=== PATIENT | female | born 1945 | race Caucasian/White ===

== ENCOUNTER 2017-03-26 08:55 | Inpatient (IN) | payer MEDICARE ==
[~2017-03-26] VITALS: Ht 167.6 cm; Wt 76.2 kg
[2017-03-26 08:55] VITALS: BP 93/62
[~2017-03-26 08:55] MED LIST: ALDACTONE25 MG PO; ALPRAZOLAM0.5 M2 PO; AMIODARONE200 MG PO; ASPIRIN ADULT L81 MG PO; ASPIRIN EC81 MG PO; CARVEDILOL6.25 MG PO; CENTURY VIT PO; CIPROFLOXACIN500 M1 PO; COUMADIN2.5 MG PO; COUMADIN5 MG PO; FUROSEMIDE20 MG PO; INSULIN; LASIX 20 MG20 MG/TAB PO; LASIX 40 MG TAB40 MG PO; LEVEMIR FL100 UNIT/M SC; LEVEMIR1000 UNITS SC; LISINOPRIL2.5 MG PO; LOPRESSOR25 MG PO; NOVOLOG100 IU/1 M SC; NYSTATIN100000 M4 TOP; OMEPRAZOLE10 MG PO; PHENERGAN25 MG/TAB PO; PRAVACHOL40 MG PO; PRAVASTATIN SOD20 MG PO; PRAVASTATIN20 MG PO; SPIRONOLACTONE25 MG PO; VITAMIN D50000 UN1 PO; ZOFRAN ODT4 MG PO; ZOFRAN4 MG/TAB PO
[2017-03-26] MEDS ORDERED: ENTRESTO 24-261 TAB PO (11:41)
[2017-03-26] MEDS ORDERED: AMIODARONE200 MG PO (11:41)
[2017-03-26] MEDS ORDERED: ELIQUIS2.5 MG PO (11:42)
[2017-03-26] MEDS ORDERED: COREG3.125 MG PO (11:42)
[2017-03-26] MEDS ORDERED: TORSEMIDE5 MG PO (11:42)
[2017-03-26] MEDS ORDERED: TESSALON PER100 MG PO (11:43)
[2017-03-26] MEDS ORDERED: PRAVASTATIN SOD20 MG PO (11:43)
[2017-03-26 13:19] VITALS: BP 109/71
[2017-03-26 15:40] VITALS: BP 118/66
[2017-03-26 20:20] VITALS: BP 132/78
[2017-03-26 23:15] VITALS: BP 111/64
[2017-03-27 03:15] VITALS: BP 121/60
[2017-03-27 06:50] LABS: HEMATOCRIT 38.5 % (37.0-47.0); HEMOGLOBIN 12.8 g/dl (12.0-16.0); IMMATURE GRANULOCYTES 0.5 % (0.0-1.0); MEAN CELL VOLUME 97.2 fL CALC (80.0-100.0); MEAN CORPUSCULAR HGB 32.3 pG CALC (26.0-32.0); MEAN CORPUSCULAR HGB CONC 33.2 g/L CALC (32.0-36.0); NEUT# 5.31 thou/uL (2.00-7.15); RED BLOOD COUNT 3.96 mill/uL (4.20-5.60); RED CELL DISTRI WIDTH 14.1 % (11.5-15.5)
[2017-03-27 07:08] LABS: CALCIUM 7.3 mg/dL (8.4-10.2); CREATININE 1.9 mg/dL (0.5-1.0)
[2017-03-27 07:09] LABS: POTASSIUM 5.6 mmol/l (3.5-5.1)
[2017-03-27 08:13] VITALS: BP 103/55
[2017-03-27 08:24] LABS: INTERNATIONAL NORMALIZED RATIO 1.4 RATIO (0.7-1.3); PROTHROMBIN TIME 15.3 SECONDS (9.0-12.5)
[2017-03-27 14:31] VITALS: BP 92/41
[2017-03-27 15:28] VITALS: BP 85/51
[2017-03-27 19:18] VITALS: BP 96/61
[2017-03-27 23:32] VITALS: BP 90/54
[2017-03-28 03:53] VITALS: BP 96/57
[2017-03-28 06:10] LABS: HEMATOCRIT 37.8 % (37.0-47.0); HEMOGLOBIN 12.6 g/dl (12.0-16.0); IMMATURE GRANULOCYTES 0.6 % (0.0-1.0); MEAN CELL VOLUME 96.9 fL CALC (80.0-100.0); MEAN CORPUSCULAR HGB 32.3 pG CALC (26.0-32.0); MEAN CORPUSCULAR HGB CONC 33.3 g/L CALC (32.0-36.0); NEUT# 8.05 thou/uL (2.00-7.15); RED BLOOD COUNT 3.9 mill/uL (4.20-5.60); RED CELL DISTRI WIDTH 14.5 % (11.5-15.5)
[2017-03-28 06:27] LABS: CREATININE 1.9 mg/dL (0.5-1.0)
[2017-03-28 06:36] LABS: POTASSIUM 5.7 mmol/l (3.5-5.1)
[2017-03-28 07:41] VITALS: BP 109/65
[2017-03-28 12:55] VITALS: BP 111/60
[2017-03-28 16:20] VITALS: BP 112/63
[2017-03-28 20:10] VITALS: BP 105/59
[2017-03-29] VITALS (7 sets, daily range): BP systolic 96–175; BP diastolic 51–78
[2017-03-29 05:44] LABS: HEMATOCRIT 37.9 % (37.0-47.0); HEMOGLOBIN 12.4 g/dl (12.0-16.0); IMMATURE GRANULOCYTES 0.6 % (0.0-1.0); MEAN CELL VOLUME 97.2 fL CALC (80.0-100.0); MEAN CORPUSCULAR HGB 31.8 pG CALC (26.0-32.0); MEAN CORPUSCULAR HGB CONC 32.7 g/L CALC (32.0-36.0); NEUT# 10.86 thou/uL (2.00-7.15); RED BLOOD COUNT 3.9 mill/uL (4.20-5.60); RED CELL DISTRI WIDTH 14.7 % (11.5-15.5)
[2017-03-29 05:57] LABS: CALCIUM 7.3 mg/dL (8.4-10.2); CREATININE 1.7 mg/dL (0.5-1.0); POTASSIUM 4.8 mmol/l (3.5-5.1)
[2017-03-30 03:35] VITALS: BP 131/71
[2017-03-30 04:59] LABS: HEMATOCRIT 36.9 % (37.0-47.0); HEMOGLOBIN 12.1 g/dl (12.0-16.0); IMMATURE GRANULOCYTES 0.6 % (0.0-1.0); MEAN CELL VOLUME 97.6 fL CALC (80.0-100.0); MEAN CORPUSCULAR HGB CONC 32.8 g/L CALC (32.0-36.0); RED BLOOD COUNT 3.78 mill/uL (4.20-5.60); RED CELL DISTRI WIDTH 14.8 % (11.5-15.5)
[2017-03-30 05:15] LABS: CALCIUM 7.1 mg/dL (8.4-10.2); CREATININE 1.4 mg/dL (0.5-1.0); POTASSIUM 5.1 mmol/l (3.5-5.1)
[2017-03-30 09:37] VITALS: BP 110/51
[2017-03-30 12:44] VITALS: BP 115/55
[2017-03-30 17:07] VITALS: BP 116/60
[2017-03-30 19:30] VITALS: BP 124/71
[2017-03-30 23:35] VITALS: BP 108/61
[2017-03-31 04:43] VITALS: BP 108/58
[2017-03-31 07:11] LABS: HEMATOCRIT 35.5 % (37.0-47.0); HEMOGLOBIN 11.8 g/dl (12.0-16.0); IMMATURE GRANULOCYTES 0.8 % (0.0-1.0); MEAN CELL VOLUME 96.7 fL CALC (80.0-100.0); MEAN CORPUSCULAR HGB 32.2 pG CALC (26.0-32.0); MEAN CORPUSCULAR HGB CONC 33.2 g/L CALC (32.0-36.0); NEUT# 11.1 thou/uL (2.00-7.15); RED BLOOD COUNT 3.67 mill/uL (4.20-5.60); RED CELL DISTRI WIDTH 14.8 % (11.5-15.5)
[2017-03-31 07:15] VITALS: BP 102/62
[2017-03-31 07:26] LABS: CALCIUM 7.5 mg/dL (8.4-10.2); CREATININE 1.2 mg/dL (0.5-1.0); POTASSIUM 4.9 mmol/l (3.5-5.1)
[2017-03-31 11:13] VITALS: BP 110/50
[2017-03-31] MEDS ORDERED: PREDNISONE10 MG PO (15:07)
[2017-03-31] MEDS ORDERED: DOXYCYCL HYC100 MG PO (15:07)
[2017-03-31] MEDS ORDERED: LASIX 40 MG TAB40 MG PO (15:13)
[2017-03-31 15:32] VITALS: BP 111/50
== END 2017-03-31 16:56 | disposition home health service (06) | DRG 291 ==
LOC: ENPENDDIS → MS2 08:55
PROVIDERS: Internal Medicine; ADMIT Internal Medicine; ATTEND Internal Medicine
PROC: 0W993ZX Drainage of Right Pleural Cavity, Percutaneous Approach, Diagnostic (ICD-10-PCS; principal; 2017-03-27)
DX: I13.0 Hypertensive heart and chronic kidney disease with heart failure and stage 1 through stage 4 chronic kidney disease, or unspecified chronic kidney disease (principal); J18.9 Pneumonia, unspecified organism; J96.20 Acute and chronic respiratory failure, unspecified whether with hypoxia or hypercapnia; J90 Pleural effusion, not elsewhere classified; E11.22 Type 2 diabetes mellitus with diabetic chronic kidney disease; E87.5 Hyperkalemia; N18.4 Chronic kidney disease, stage 4 (severe); N17.9 Acute kidney failure, unspecified; K31.84 Gastroparesis; E11.43 Type 2 diabetes mellitus with diabetic autonomic (poly)neuropathy; Z99.81 Dependence on supplemental oxygen; I50.23 Acute on chronic systolic (congestive) heart failure; I48.0 Paroxysmal atrial fibrillation; I25.10 Atherosclerotic heart disease of native coronary artery without angina pectoris; E78.5 Hyperlipidemia, unspecified; M19.90 Unspecified osteoarthritis, unspecified site; R07.9 Chest pain, unspecified; I25.5 Ischemic cardiomyopathy; E55.9 Vitamin D deficiency, unspecified; D63.1 Anemia in chronic kidney disease; I25.2 Old myocardial infarction; K59.00 Constipation, unspecified; Z79.4 Long term (current) use of insulin; Z88.0 Allergy status to penicillin; Z79.01 Long term (current) use of anticoagulants; Z95.810 Presence of automatic (implantable) cardiac defibrillator; Z95.5 Presence of coronary angioplasty implant and graft

== ENCOUNTER 2018-06-21 10:26 | Inpatient (IN) | payer MEDICARE, MEDICAID ==
[2018-06-21] VITALS (8 sets, daily range): BP systolic 107–155; BP diastolic 64–78
[~2018-06-21] VITALS: Ht 170.2 cm; Wt 73.5 kg
[~2018-06-21 10:26] MED LIST changes: +COREG3.125 MG PO; +DOXYCYCL HYC100 MG PO; +ELIQUIS2.5 MG PO; +ENTRESTO 24-261 TAB PO; +PREDNISONE10 MG PO; +TESSALON PER100 MG PO; +TORSEMIDE5 MG PO
[2018-06-21] MEDS ORDERED: LOSARTAN POT25 MG PO (10:56)
[2018-06-21 10:58] LABS: HEMATOCRIT 37.2 % (37.0-47.0); IMMATURE GRANULOCYTES 0.3 % (0.0-5.0); MEAN CELL VOLUME 97.1 fL CALC (80.0-100.0); MEAN CORPUSCULAR HGB 33.2 pG CALC (26.0-32.0); MEAN CORPUSCULAR HGB CONC 34.1 g/L CALC (32.0-36.0); NEUT# 5.26 thou/uL (2.00-7.15); RED BLOOD COUNT 3.83 mill/uL (4.20-5.60); RED CELL DISTRI WIDTH 12.6 % (11.5-15.5)
[2018-06-21] MEDS ORDERED: LASIX 40 MG TAB40 MG PO (10:58)
[2018-06-21] MEDS ORDERED: WARFARIN3 MG PO (10:59)
[2018-06-21 11:02] LABS: HEMOGLOBIN 12.7 g/dl (12.0-16.0)
[2018-06-21 11:07] LABS: CREATININE 1.4 mg/dL (0.5-1.0)
[2018-06-21 11:23] LABS: INTERNATIONAL NORMALIZED RATIO 1.5 RATIO (0.7-1.3); PROTHROMBIN TIME 17.4 SECONDS (9.0-12.5)
[2018-06-21 14:35] LABS: URINE BILIRUBIN - DIPSTICK NEGATIVE (NEGATIVE); URINE BLOOD DIPSTICK NEGATIVE (NEGATIVE); URINE COLOR YELLOW; URINE GLUCOSE - DIPSTICK >=1000 mg/dL (NEGATIVE); URINE KETONE NEGATIVE (NEGATIVE); URINE LEUK ESTERASE NEGATIVE (NEGATIVE); URINE NITRITE - DIPSTICK NEGATIVE (Negative); URINE PH 5.5 (4.5-8.0); URINE PROTEIN - DIPSTICK NEGATIVE (NEG-TRACE); URINE SPECIFIC GRAVITY <=1.005; URINE UROBILINOGEN - DIPSTICK 0.2 E.U./dL (0.2)
[2018-06-21 14:49] LABS: URINE CLARITY CLEAR
== END 2018-06-21 17:40 | disposition short-term general hospital (02) | DRG 309 ==
LOC: ED 10:26 → ED-I 11:50 → ED 12:00 → ICU 12:01
PROVIDERS: Family Medicine; ADMIT Internal Medicine Nephrology; ATTEND Internal Medicine Nephrology
DX: I47.2 Ventricular tachycardia (principal); I13.0 Hypertensive heart and chronic kidney disease with heart failure and stage 1 through stage 4 chronic kidney disease, or unspecified chronic kidney disease; I25.10 Atherosclerotic heart disease of native coronary artery without angina pectoris; I48.2 Chronic atrial fibrillation; E78.5 Hyperlipidemia, unspecified; E11.22 Type 2 diabetes mellitus with diabetic chronic kidney disease; N18.3 Chronic kidney disease, stage 3 (moderate); I50.9 Heart failure, unspecified; M19.90 Unspecified osteoarthritis, unspecified site; I25.2 Old myocardial infarction; Z95.810 Presence of automatic (implantable) cardiac defibrillator; Z95.5 Presence of coronary angioplasty implant and graft; Z79.4 Long term (current) use of insulin
CPT/HCPCS: J0282

== ENCOUNTER 2019-02-24 18:44 | Emergency (ER) | payer MEDICARE ==
[~2019-02-24] VITALS: Ht 170.2 cm; Wt 100.0 kg
[~2019-02-24 18:44] MED LIST changes: +LOSARTAN POT25 MG PO; +WARFARIN3 MG PO
[2019-02-24 19:21] LABS: HEMATOCRIT 35.7 % (37.0-47.0); HEMOGLOBIN 11.5 g/dl (12.0-16.0); IMMATURE GRANULOCYTES 0.1 % (0.0-5.0); MEAN CELL VOLUME 95.7 fL CALC (80.0-100.0); MEAN CORPUSCULAR HGB 30.8 pG CALC (26.0-32.0); MEAN CORPUSCULAR HGB CONC 32.2 g/L CALC (32.0-36.0); NEUT# 5.1 thou/uL (2.00-7.15); RED BLOOD COUNT 3.73 mill/uL (4.20-5.60); RED CELL DISTRI WIDTH 13.9 % (11.5-15.5)
[2019-02-24 19:22] VITALS: BP 120/81
[2019-02-24 19:34] LABS: CREATININE 1.5 mg/dL (0.5-1.0); POTASSIUM 3.8 mmol/l (3.5-5.1)
== END 2019-02-24 19:40 | disposition short-term general hospital (02) ==
LOC: ED 18:44
PROVIDERS: Family Medicine
DX: R07.9 Chest pain, unspecified (principal); I48.91 Unspecified atrial fibrillation; I25.10 Atherosclerotic heart disease of native coronary artery without angina pectoris; E11.9 Type 2 diabetes mellitus without complications; I10 Essential (primary) hypertension; I25.2 Old myocardial infarction; Z95.0 Presence of cardiac pacemaker; Z88.6 Allergy status to analgesic agent; Z95.5 Presence of coronary angioplasty implant and graft
CPT/HCPCS: J1644

== ENCOUNTER 2019-06-18 16:40 | Inpatient (IN) | payer MEDICARE ==
[~2019-06-18] VITALS: Ht 170.2 cm; Wt 85.5 kg
[2019-06-18] VITALS (11 sets, daily range): BP systolic 78–102; BP diastolic 44–69
[~2019-06-18 16:40] MED LIST changes: -COREG3.125 MG PO; +COREG6.25 MG PO
--- NOTE | 2019-06-18 16:40 | NUR ---
PT DIRECTLY TO ROOM VIA WHEELCHAIR.
[2019-06-18 17:19] LABS: HEMATOCRIT 36.4 % (37.0-47.0); HEMOGLOBIN 11.4 g/dl (12.0-16.0); IMMATURE GRANULOCYTES 0.4 % (0.0-5.0); MEAN CELL VOLUME 93.3 fL CALC (80.0-100.0); MEAN CORPUSCULAR HGB 29.2 pG CALC (26.0-32.0); MEAN CORPUSCULAR HGB CONC 31.3 g/L CALC (32.0-36.0); NEUT# 3.88 thou/uL (2.00-7.15); RED BLOOD COUNT 3.9 mill/uL (4.20-5.60); RED CELL DISTRI WIDTH 14.6 % (11.5-15.5)
[2019-06-18 17:35] LABS: PROTHROMBIN TIME 21.4 SECONDS (9.0-12.5)
--- NOTE | 2019-06-18 17:35 | NUR ---
ADMINISTERED ADDITIONAL 10MG CARDIZEM IV SLOW PUSH ORDERED PER MD. HR 112. PT DENIES SOB AND STATES PAIN IN CHEST IS DOWN TO 5/10.
--- NOTE | 2019-06-18 17:36 | NUR ---
INITIATED CARDIZEM GTT AT 5MG/HR PER MD. PT TOLERATING WELL HR 100. SKIN RUMA, RAUL IN LAW AT BEDSIDE
[2019-06-18 17:37] LABS: CREATININE 1.7 mg/dL (0.5-1.0); INTERNATIONAL NORMALIZED RATIO 2.1 RATIO (0.7-1.3)
[2019-06-18 17:43] LABS: POTASSIUM 4.7 mmol/l (3.5-5.1)
[2019-06-18] MEDS ORDERED: VITAMIN D2000 UNI1 PO (18:09)
[2019-06-18] MEDS ORDERED: WARFARIN3 MG PO (18:11)
[2019-06-18] MEDS ORDERED: WARFARIN6 MG PO (18:12)
[2019-06-18] MEDS ORDERED: LORATADINE10 M1 PO (18:15)
[2019-06-18] MEDS ORDERED: SOTALOL HCL80 MG PO (18:15)
--- NOTE | 2019-06-18 18:15 | NUR ---
PATIENT ARRIVES WITH ER NURSE VIA STRETCHER WITH TELEMETRY AND CARDIZEM AND NS FLUIDS. WAS ABLE TO WALK TO BED WITH MINIMAL ASSIST. PATIENT USED BSC, URINE CLEAR AND YELLOW. PATIENT ALERT AND ORIENTED X4. WAS PLACED ON NC 2L/MIN, SHE REPORTS SHE USES NC 2L/MIN AT HOME. SATS 100%. COMPLAINS OF CHEST PRESSURE, RATES 3/10 PAIN SCALE. NO OTHER COMPLAINTS. ADMISSION COMPLETED. EDUCATED ON POC FOR TONIGHT. SELF REPOSITIONS. REQUESTS FOR FOOD, EDUCATED ON BLOOD SUGAR CHECKS AND INSULIN. RAC 20 G IV INTACT AND CARDIZEM DRIP AND NS INFUSING. CARDIZEM DRIP AT 5MG/HR. AFIB ON TELEMTERY, HR IS BETWEEN 80'S TO 100'S. EXERTIONAL SOB NOTED. CALL LIGHT WITHIN REACH. WILL CONTINUE TO MONITOR.
[2019-06-18] MEDS ORDERED: SPIRONOLACT25 MG PO (18:17)
[2019-06-18] MEDS ORDERED: PROTONIX40 M2 PO (18:20)
[2019-06-18] MEDS ORDERED: POT CHLORIDE10 ME1 PO (18:20)
[2019-06-18] MEDS ORDERED: NOVOLIN N100 UNIT/1 SC ×3 (18:24→18:25)
--- NOTE | 2019-06-18 18:40 | NUR ---
PT RESTING SUPINE IN NO DISTRESS WITH HOB ELEVATED. HR 86 AFIB NOTED ON MONITOR. NO COMPLAINTS.
--- NOTE | 2019-06-18 19:01 | NUR ---
CALLED REPORT TO ICU
--- NOTE | 2019-06-18 19:12 | NUR ---
TRANSPORTED TO ICU VIA STRETCHER IN STABLE CONDITION ON CONTINUOUS CARDAIC MONITOR.
--- NOTE | 2019-06-18 20:08 | NUR ---
CALLED AND SPOKE TO DR CONNELL TO REPORT PATIENT'S BS TOMIGHT, 350MG/DL. NEW ORDERS RECEIVED.
--- NOTE | 2019-06-18 22:25 | NUR ---
CALLED AND SPOKE TO DR CONNELL REGARDING PATIENT HAS HAD V-TACH X3, EACH 8 -9 BEATS OF V-TACH WITHIN ABOUT 15 MINUTES. ASYMPTOMATIC. NEW ORDERS RECEIVED.
[2019-06-19] VITALS (24 sets, daily range): BP systolic 78–103; BP diastolic 50–75
--- NOTE | 2019-06-19 | NUR ---
patient was assited to bsc. becomes sob with exertion. on 2l/min nc. sits at side of bed per request.
--- NOTE | 2019-06-19 00:50 | NUR ---
CALLED AND SPOKE TO DR CONNELL REGARDING PATIENT'S BLOOD PRESSURE. UPDATED HIM ON PATIENT'S CURRENT STATUS, NEW ORDERS RECEIVED.
--- NOTE | 2019-06-19 02:10 | NUR ---
patient sitting on side of bed, states, "legs feel restless." reports she sometimes sits on side of the bed at night at home. on 2l/min nc, no respiratory distress noted, sats 100%. afib on tele. hr now 85-103 bpm. with occassional frequent pvc's. call light within reach.
--- NOTE | 2019-06-19 04:52 | NUR ---
patient was assisted to bedside chair. reports the bed hurts her back. on 2l/min nc, sob with exertion noted. sats 100%. afib on tele with pvc's. call light within reach. will continue to monitor.
--- NOTE | 2019-06-19 05:55 | NUR ---
patient remains sitting on bs chair. no complaints. on 2l/min nc. no sob noted. afib, hr 80's to 100. call light within reach.
--- NOTE | 2019-06-19 07:35 | NUR ---
PT SITTING UP ON EDGE OF BED FOR AM MEAL, AM ASSESSMENT COMPLETED, SEE INTERVENTION, NO COMPLAINTS OF PAIN, SKIN WARM AND DRY PT REMAINS ASYMPTOMATICALLY HYPOTENSIVE WITH MAP MAINTAINED >65, TELE CONTINUES READING AFIB RATE 100-110 WITH OCCASIONAL RUNS OF V TACH, (PER REPORT MD ALREADY AWARE) LUNGS CLEAR NO SOB PT ADMITS TO HAVING AN INTERMITTENLY PRODUCTIVE COUGH, CUP PROVIDED FOR SPECIMEN COLLECTION, COMFORT MEASURES PROVIDED, PT ABLE TO REPOSITION SELF FOR COMFORT.
--- NOTE | 2019-06-19 08:45 | NUR ---
PT OOB TO BSC WITH STAND BY ASSIST, TOLERATED ACTIVITY WELL
--- NOTE | 2019-06-19 09:25 | NUR ---
PT IN V TACH RATE 130'S BP REMAINS UNCHANGED, PT DENIES SYMPTOMS, PT DOES HAVE A PACER/AICD, NO ACTION FROM AICD NOTED. WILL NOTIFY AND OBTAIN EKG
[2019-06-19] MEDS ORDERED: PROLIA60 MG/ML SC (09:27)
--- NOTE | 2019-06-19 09:27 | NUR ---
OF SUSTAINED LOW RATE V TACH (RATE 130-135) PT REMAINS ASYMPTOMATIC AND BP REMAINS STABLE (MAP>65) TELEMETRY AND EKG SENT TO OFFICE
[2019-06-19] MEDS ORDERED: TESSALON PER100 MG PO (09:37)
[2019-06-19] MEDS ORDERED: FLONASE AL50 MCG/ACT (09:43)
[2019-06-19] MEDS ORDERED: NOVOLIN R100 UNIT/M SC ×3 (09:46→09:49)
--- NOTE | 2019-06-19 09:55 | NUR ---
V TACH CONVERTED BACK TO A FIB RATE 110'S, PT DENIES SYMRTOMS, CONTINUES WITH NO ACTION NOTED FROM AICD.
--- NOTE | 2019-06-19 10:32 | NUR ---
PT OOB TO BSC, CONTINUES TO HAVE RUNS OF LOW RATE V TACH (130'S), BP REMAINS STABLE MAP > 65, WILL CONTINUE TO MONITOR.
--- NOTE | 2019-06-19 11:37 | NUR ---
PER CHRISSIE SMITH SHE IWLL BE IN SOON FOR CONSULTATION. SHE HAS READ AM NURSES NOTES AND AWARE OF AM EVENTS
--- NOTE | 2019-06-19 12:28 | NUR ---
Richy MORENO APRN AT BEDSIDE FOR ALTAJAR CONSULT.
--- NOTE | 2019-06-19 13:00 | NUR ---
PT ASSISTED UP TO RECLINER WITH MIN ASSIST, CALL JACKSON WITHIN REACH
--- NOTE | 2019-06-19 14:13 | NUR ---
PT STARTED ON AMIODARONE ORDERED, PT EDUCATED REGARDING REASON FOR ADMINISTRATION, EXPECTATIONS AND POTENTIAL SIDE EFFECTS, VERBALIZES UNDERSTANDING, ALSO MEDICATED WITH TYLENOL ORDERED FOR COMPLAINTS OF BACK ACHING, CALL JACKSON WITHIN REACH AND REMAINS SITTING UP IN RECLINER.
--- NOTE | 2019-06-19 14:43 | NUR ---
pt back to bed with same assist, repositioned for comfort and call gonzalez within reach
--- NOTE | 2019-06-19 15:21 | NUR ---
PT REQUESTING EMSIS BAG, COMPLAINS OF NAUSEA, WILL NOTIFY
--- NOTE | 2019-06-19 15:42 | NUR ---
AJAY LEWIS OF NAUSEA AND NEW ORDERS REC'D
--- NOTE | 2019-06-19 16:01 | NUR ---
MEDICTAED FOR COMPLAINTS OF NAUSEA
--- NOTE | 2019-06-19 16:14 | NUR ---
PT STATES FEELING A LITTLE BIT BETTER BUT NOT MUCH. COMFORT MEASURES PROVIDED
--- NOTE | 2019-06-19 16:36 | NUR ---
PT OOB TO RECLINER AGAIN AT THIS TIME, COMPLAINS OF BEING "WINDED' WITH EXERTION BUT RECOVERS QUICKLY AT REST. CALL JACKSON WITHIN REACH
--- NOTE | 2019-06-19 17:21 | NUR ---
ASSISTED BACK TO BED COMPLAINING OF MILD DIZZINESS, TOLERATED TRASNFER WELL, CALL JACKSON WITHIN REACH, BP REMAINS HYPOTENSIVE BUT MAP MAINTAINED >65, SET UP ASSIST PROVIDED FOR PM MEAL, CALL JACKSON WITHIN REACH.
--- NOTE | 2019-06-19 18:07 | NUR ---
PT REMAINS RESTING IN BED, OFFERS NO NEW COMPLAINTS, CALL JACSKON WITHIN REACH
--- NOTE | 2019-06-19 19:00 | NUR ---
PATIENT WAS ASSISTED TO BSC TO VOID. C/O OF "CELE IN THE NECK," OFFERED HER A HOT PACK, SHE REPORTS FEELS BETTER WITH HOT PACK. ASSISTED BACK TO BED SAFELY. NO OTHER COMPLAINTS. DENIES NAUSEA. CALL LIGHT WITHIN REACH.
--- NOTE | 2019-06-19 19:25 | NUR ---
PATIENT ALERT AND ORIENTED X4. ON 2 L/MIN NC, NO SOB NOTED. HEAD TO TOE NURSING ASSESSMENT PERFORMED. L-H 22G IV INTACT, SALINE LOCKED. SELF REPOSITIONS. EDUCATED ON POC FOR TONIGHT, UNDERSTANDS AND AGREES. DENIES NAUSEA, DENIES PAIN. AFIB ON TELEMETRY, HR BETWEEN 90'S-110 BPM. CALL LIGHT WITHIN REACH WILL CONTINUE TO MONITOR.
--- NOTE | 2019-06-19 20:10 | NUR ---
DAUGHTER CALLED, DID NOT HAVE CODE. I ASKED FOR CONSENT FROM PATIENT IF DAUGHTER ALLOWED TO HAVE CODE AND GIVE INFORMATION, PATIENT CONSENTS AND UPDATE GIVEN TO DAUGHTER, CODE GIVEN WELL.
--- NOTE | 2019-06-19 20:12 | NUR ---
PHONE TRANSFERRED TO PATIENT TO SPEAK TO DAUGHTER AND .
--- NOTE | 2019-06-19 21:14 | NUR ---
AYAKA MCCORD IN ROOM TO ASSIST WITH BED BATH. PATIENT ALSO HAD NIGHTTIME SNACK.
--- NOTE | 2019-06-19 22:00 | NUR ---
patient laying with hob 30 degrees. on 2 l/min nc. no complaints of pain. rests with eyes closed. afib on telemetry with occassional pvc's, hr between 90's to 114 bpm. call light within reach.
[2019-06-20] VITALS (21 sets, daily range): BP systolic 75–113; BP diastolic 46–72
--- NOTE | 2019-06-20 00:05 | NUR ---
patient resting with eyes closed. turned tv off. she has an occassional cough and productive. afib on telemetry, hr low 100's. bp is hypotensive 80's-90's systolic. at times bp reads 78 systolic, bp cuff is readjusted and bp taken again. call light within reach. will continue to monitor.
--- NOTE | 2019-06-20 00:24 | NUR ---
patient sitting up on side of the bed, complains of nausea, does vomit scant amount, nausea medication provided. reports last bm was yesterday on the bsc, bs are hyoactive at this moment. will continue to monitor.
--- NOTE | 2019-06-20 01:54 | NUR ---
patient denies nausea at this moment, requests tylenol for chronic lower back pain, tylenol provided. beomes sob with exertion.
--- NOTE | 2019-06-20 02:00 | NUR ---
bs was checked as well, results 156 mg/dl. patient reports when her bs is l50 mg/dl it will "drop very fast." apple juice was provided per request. patient denies nausea. call light within reach. bp 89/59. sats 100% on 2l/min nc. afib on telemetry, hr between 90's to low 100's. will continue to monitor.
--- NOTE | 2019-06-20 03:30 | NUR ---
patient was assisted back to bed. sob noted with exertion. on 2l/min nc. call light within reach.
--- NOTE | 2019-06-20 05:00 | NUR ---
patient was assisted to and from bsc. sob with exertion noted. on 2l/min nc. call light within reach.
[2019-06-20 05:42] LABS: HEMATOCRIT 37.8 % (37.0-47.0); HEMOGLOBIN 11.7 g/dl (12.0-16.0); MEAN CORPUSCULAR HGB 29.1 pG CALC (26.0-32.0); RED BLOOD COUNT 4.02 mill/uL (4.20-5.60); RED CELL DISTRI WIDTH 14.7 % (11.5-15.5)
[2019-06-20 06:02] LABS: PROTHROMBIN TIME 30.2 SECONDS (9.0-12.5)
[2019-06-20 06:04] LABS: CREATININE 1.9 mg/dL (0.5-1.0)
--- NOTE | 2019-06-20 06:05 | NUR ---
patient with hob 30 degrees, watching tv. on 2l/min nc, sats 100%. no acute distress shown, afib on telemetry with pacing, and occassional pvc's, hr between 90's-100 bpm. call light within reach. will continue to monitor.
[2019-06-20 06:06] LABS: POTASSIUM 4.3 mmol/l (3.5-5.1)
--- NOTE | 2019-06-20 07:25 | NUR ---
PT SITTING UP IN BED FOR AM MEAL (AFTER REPOSITIONING SELF FOR COMFORT), AM ASSESSMENT COMPLETED, SEE INTERVENTION, NO COMPLAINTS OF PAIN, SKIN WARM AND DRY PT REMAINS ASYMPTOMATICALLY HYPOTENSIVE WITH MAP MAINTAINED >65, TELE CONTINUES READING AFIB RATE 100-110 WITH OCCASIONAL RUNS OF V TACH, IMPROVED SINCE AMIODARONE STARTED YESTERDAY, LUNGS CLEAR PT HAS EXERTIONAL DYSPNEA BUT RECOVERS WELL WITH REST, PT ADMITS TO HAVING AN INTERMITTENLY PRODUCTIVE COUGH, NOT WITNESSED BY THIS NURSE, COMFORT MEASURES PROVIDED, PT ABLE TO REPOSITION SELF FOR COMFORT.
--- NOTE | 2019-06-20 08:08 | NUR ---
SET UP ASSIST FOR AM MEAL PROVIDED, CALL JACKSON WITHIN REACH. DENIES NAUSEA A THIS TIME BUT STATES SHE CONTIINUES TO HAVE IT INTERMITTENLY.
--- NOTE | 2019-06-20 08:22 | NUR ---
AND Malachi NAVARRETE STEEL FINISHER INTO SEE PT ON AM ROUNDS.
--- NOTE | 2019-06-20 08:57 | NUR ---
Pharmacy consulted to dose warfarin. Pt's home dose is warfarin 3 mg po daily. Goal INR range 2-3 for Atrial fibrillation. 06/18/19 INR=2.1 Dose lowered on 06/19/19 to 2 mg po daily due to initiation of amiodarone. 06/20/19 INR=3 PLAN: HOLD TODAY'S DOSE AND RECHECK INR TOMORROW. WILL RESTART WARFARIN WHEN INR <3.
--- NOTE | 2019-06-20 10:28 | NUR ---
PT SITTING UP IN RECLINER, VISIOTRS AT BEDSIDE, OFFERS NO NEW COMPLAINTS, CONTINUES TO COMPLAIN OF INTERMITTENT NAUSEA, CALL JACKSON WITHIN REACH.
--- NOTE | 2019-06-20 11:05 | NUR ---
ACCU CHECK 67 [employer] [place] [employer] OFFERED PT DECLINED SNACK WILL CONTINUE TO MONITOR.
--- NOTE | 2019-06-20 11:09 | NUR ---
RDimitri AT BEDSIDE FOR NEB TREATMENTS ORDERED
--- NOTE | 2019-06-20 11:45 | NUR ---
PT OOB TO RECLINER, SET UP ASSIST PROVIDED EARLIER FOR LUNCH, NO COMPLAINTS, OFFERED, CALL JACKSON WITHIN REACH
--- NOTE | 2019-06-20 12:28 | NUR ---
PT OOB TO BSC, CONTINENT OF MODERATE LOOSE STOOL, BJORN CARE PROVIDED, REMAINS SITTING UP IN RECLINER AT BEDSIDE, WILL CONTINUE TO MONITOR.
--- NOTE | 2019-06-20 13:35 | NUR ---
PT RESTING OFFERS NO NEW COMPLAINTS, VISITOR AT BEDSIDE, CALL JACKSON WITHIN REACH
--- NOTE | 2019-06-20 15:00 | NUR ---
PT RESTING INBED WATCHING TELEVISION, NO COMPLAINTS OFFERED, VISITOR REMAINS AT BEDSIDE, CALL JACKSON WITHIN REACH
--- NOTE | 2019-06-20 16:34 | NUR ---
REPORT GIVEN TO SHEA WALTERS, PT RESTING IN BED, NO COMPLAINTS OFFERED, CALL JACKSON WITHIN REACH
--- NOTE | 2019-06-20 19:15 | NUR ---
awake. denies distress. cardiac care nurse shows a fib pvcs hr 113. #22 lt hand saline lock. po fluids taken well. voids per bsc. fall precautions cont.
--- NOTE | 2019-06-20 22:00 | NUR ---
watching tv. no c/o voiced.
[2019-06-21] VITALS (16 sets, daily range): BP systolic 68–104; BP diastolic 49–70
--- NOTE | 2019-06-21 00:01 | NUR ---
eyes closed. no distress. lunchroom monitor shows a fib pvcs hr 108.
--- NOTE | 2019-06-21 02:00 | NUR ---
resting quietly. no apparent distress.
--- NOTE | 2019-06-21 02:30 | NUR ---
awake. admits "my sugar is low." accucheck 63. snack given.
--- NOTE | 2019-06-21 04:00 | NUR ---
eyes closed. no apparent dostress. radiographer cardiac catheterization shows a fib pvcs hr 106.
--- NOTE | 2019-06-21 04:55 | NUR ---
lab here. blood drawn.
--- NOTE | 2019-06-21 05:30 | NUR ---
sitting on side of bed. c/o nausea & dry heaves when coughing. zofran 4mg iv given.
[2019-06-21 05:37] LABS: HEMATOCRIT 36.5 % (37.0-47.0); HEMOGLOBIN 11.2 g/dl (12.0-16.0); MEAN CELL VOLUME 93.6 fL CALC (80.0-100.0); MEAN CORPUSCULAR HGB 28.7 pG CALC (26.0-32.0); MEAN CORPUSCULAR HGB CONC 30.7 g/L CALC (32.0-36.0); RED BLOOD COUNT 3.9 mill/uL (4.20-5.60); RED CELL DISTRI WIDTH 14.8 % (11.5-15.5)
[2019-06-21 05:40] LABS: INTERNATIONAL NORMALIZED RATIO 3.5 RATIO (0.7-1.3)
[2019-06-21 05:47] LABS: POTASSIUM 4.8 mmol/l (3.5-5.1)
--- NOTE | 2019-06-21 06:00 | NUR ---
awake. lying in bed. no further c/o.
--- NOTE | 2019-06-21 06:18 | NUR ---
up to bedside chair per request.
--- NOTE | 2019-06-21 08:10 | NUR ---
ASSESSMENT IS COMPLETED: IV SITE IS FREE FROM REDNESS OR EDEMA.HR IS REG,PULSES ARE STRONG X4, ABD IS SOFT WITH ACTIVE BS. BREATH SOUNDS ARE CLER ON RIGHT AND DIMINSHED WITH FINE CRACKLES ON THE LEFT. CONTINUE TO OSBERVE AND MONITOR.
--- NOTE | 2019-06-21 10:15 | NUR ---
INTO VISIT WITH PT. IV SITE IS FREE FROM REDNESS OR EDMEA. CONTINUE TO OBSERVE AND MONITOR.
--- NOTE | 2019-06-21 12:15 | NUR ---
PT HAS BEEN IN THE CHAIR THEN GOES BACK TO BED. IV SITE IS FREE FROM REDNESS OR EDEMA. CONTINUE TO OSBERVE AND MONITOR.
--- NOTE | 2019-06-21 13:05 | NUR ---
PT HAS NOT VOIDED MUCH TODAY. APPROX 50CC. DID A BLADDER SCAN SHOWED 22ML PT DOESN'T FEEL LIKE SHE NEEDS TO VOID. CONTINUE TO OBSERVE AND MONITOR.
--- NOTE | 2019-06-21 16:15 | NUR ---
PT HAS BEEN RESTING IN BED WITH MO DISTRESS NOTED. FAMILY CALLED AND INQUIRED ABOUT PT . INFORMED THAT SHE
--- NOTE | 2019-06-21 16:26 | NUR ---
RECEIVED A CALL FROM DR MOYER. NEW ORDERS FOR THE NYSTATIN POWDER, AND TO DO A STRAIGHT CATH FOR URINE
--- NOTE | 2019-06-21 16:28 | NUR ---
CALLING DR MOYER RE: PT HAVING SMALL VOIDS. ALSO HAS A SMALL SPOT ON HER ABD FOLD THAT IS PINK AND MOIST PER PT DOESNOT HURT AND HAS HAD IT FOR A LONG TIME.
--- NOTE | 2019-06-21 18:29 | NUR ---
STRAIGHT CATH PT BY ALFREDO RN/ ONLY 8ML RETRIEVED PT TOLERATED WELL. USING STERILE TECHNIQUE.
[2019-06-21 18:33] LABS: URINE BILIRUBIN - DIPSTICK NEGATIVE (NEGATIVE); URINE BLOOD DIPSTICK NEGATIVE (NEGATIVE); URINE COLOR YELLOW; URINE GLUCOSE - DIPSTICK NEGATIVE (NEGATIVE); URINE KETONE TRACE mg/dL (NEGATIVE); URINE LEUK ESTERASE TRACE (Negative); URINE NITRITE - DIPSTICK NEGATIVE (Negative); URINE PROTEIN - DIPSTICK TRACE mg/dL (NEG-TRACE); URINE SPECIFIC GRAVITY 1.025
[2019-06-21 19:29] LABS: URINE CLARITY CLEAR
--- NOTE | 2019-06-21 19:30 | NUR ---
awake. denies distress. nurse monitoring shows a fib pvcs hr 95. #22 lac saline lock. po fluids taken fair. voids per bsc. voids small amts. urine lt eboni. fall precautions cont.
--- NOTE | 2019-06-21 20:30 | NUR ---
awake. does not hs snack yet. will hold insulin.
--- NOTE | 2019-06-21 22:00 | NUR ---
no distress. crdiac monitor shows a fib pvcs hr 86
[2019-06-22] VITALS (10 sets, daily range): BP systolic 80–106; BP diastolic 51–78
--- NOTE | 2019-06-22 00:01 | NUR ---
eyes closed. no distress. o2 cont.
--- NOTE | 2019-06-22 02:00 | NUR ---
resting quietly. resps even & unlabored. no apparent distress.
--- NOTE | 2019-06-22 04:00 | NUR ---
eyes closed. no distress. automotive quality manager shows a fib pvcs hr 94.
--- NOTE | 2019-06-22 05:15 | NUR ---
lab here. blood drawn.
[2019-06-22 05:29] LABS: HEMATOCRIT 36.4 % (37.0-47.0); HEMOGLOBIN 11.5 g/dl (12.0-16.0); MEAN CELL VOLUME 92.6 fL CALC (80.0-100.0); MEAN CORPUSCULAR HGB 29.3 pG CALC (26.0-32.0); MEAN CORPUSCULAR HGB CONC 31.6 g/L CALC (32.0-36.0); RED BLOOD COUNT 3.93 mill/uL (4.20-5.60); RED CELL DISTRI WIDTH 14.9 % (11.5-15.5)
--- NOTE | 2019-06-22 05:30 | NUR ---
to xray per wc for 2 v cxr.
[2019-06-22 05:43] LABS: PROTHROMBIN TIME 44.4 SECONDS (9.0-12.5)
--- NOTE | 2019-06-22 05:45 | NUR ---
returned from xray. assisted to bedside chair per request. charli tee.
[2019-06-22 05:47] LABS: INTERNATIONAL NORMALIZED RATIO 4.5 RATIO (0.7-1.3)
[2019-06-22 05:49] LABS: ALBUMIN 3.4 g/dL (3.2-5.0); CREATININE 2.6 mg/dL (0.5-1.0); TOTAL PROTEIN 6.3 g/dL (6.3-8.2)
[2019-06-22 05:50] LABS: POTASSIUM 5.3 mmol/l (3.5-5.1)
--- NOTE | 2019-06-22 06:00 | NUR ---
has voided small amounts this shift.
--- NOTE | 2019-06-22 08:00 | NUR ---
ASSESSMENT IS COMPLTED: IV SITE IS FREE FROM REDNESS OR EDEMA. HR IS REG,PULSES ARE STRONG X4, ABD IS SOFT WITH ACTIVE BS. BREATH SOUNDS ARE CLEAR, IN LEFT WITH CLEAR AND DIMINISHED IN THE RIGHT. CONTINUE TO OSBERVE AND MONITOR.
--- NOTE | 2019-06-22 08:45 | NUR ---
PT WAS GIVEN AN INCENTIVE SPIROMETER AND HAND HELD CPT DEVICE ABLE TO DEMONSTRATE WITH RESPIRATORY.
--- NOTE | 2019-06-22 10:51 | NUR ---
IN THE UNIT WILL ORDER THE HAND HELP CPT.
--- NOTE | 2019-06-22 12:15 | NUR ---
PT HAS BEEN IN BED AND THEN THE CHAIR. NO DISTRESS NOTED. TOLERATING FLUTTER VALVE. CONTINUE TO OBSERVE AND MONITOR.
--- NOTE | 2019-06-22 14:00 | NUR ---
PT HAS BEEN RESTING WITH EYES CLOSED. IV SITE IS FREE FROM REDNESS OR EDEMA.
--- NOTE | 2019-06-22 16:00 | NUR ---
PT IS RELAXING IN BED WITH NO DISTRESS NOTED. IV SITE IS FREE FROM REDNESS OR EDEMA
--- NOTE | 2019-06-22 18:00 | NUR ---
PT IS COMPLETING THE BREATHING TREATMENT AND RINSE AND SPIT TO KEEP MOUTH CLEARED FROM MEDICATION.
--- NOTE | 2019-06-22 18:45 | NUR ---
REPORT FROM Joanne MCKEON LPN. ASSUMED PT. CARE.
--- NOTE | 2019-06-22 19:50 | NUR ---
PT. FOUND AWAKE, ALERT, ORIENTED X 3. MAE. ALLEN. DRY COUGH NOTED AT THIS TIME. RESPS EVEN AND UNLABORED. HR ELEVATED AT 105 A-FIB. PT. HYPOTENSIVE AT THIS TIME. PT. STATES LAST BM WAS YESTERDAY AND THAT IS NORMAL FOR HER WHILE SHE IS IN THE HOSPITAL. BOWEL SOUNDS HYPOACTIVE. TRACE EDEMA NOTED TO LOWER EXT BILAT. DIMINISHED TO BASES BILAT. DENIES OTHER COMPLAINTS OR NEEDS AT THIS TIME.
--- NOTE | 2019-06-22 19:56 | NUR ---
PT. ASSISTED TO BSC AT THIS TIME. MILD GARCIA NOTED. DENIES COMPLAINTS OF PAIN AT THIS TIME. MINIMAL ASSIST. WILL CONTINUE TO CLOSELY MONITOR. CALL LIGHT PLACED BACK WITHIN REACH.
--- NOTE | 2019-06-22 21:25 | NUR ---
RT AT BEDSIDE TO ADMINISTER NEB TREATMENT.
--- NOTE | 2019-06-22 21:30 | NUR ---
PT. MEDICATED PER PHYSICIAN ORDERS. DOXY INFUSING AT THIS TIME. CONTINUES TO DECLINE NEED FOR HS SNACK. RESPS REMAINS EVEN AND UNLABORED. BP REMAINS HYPOTENSIVE WHILE HR REMAINS ELEVATED A-FIB IN THE 100 RANGE. WILL CONTINUE TO MONITOR.
--- NOTE | 2019-06-22 22:49 | NUR ---
IV SITE CHANGED OUT AT THIS TIME. PT WAS COMPLAINING OF PAIN AT THE INFUSION SITE. NEW IV PLACED TO RT. WRIST #22 X 2 ATTEMPTS. PT. TOLERATED WELL AND IV ABX/FLUIDS REINITIATED. DENIES OTHER COMPLAINTS OR NEEDS AT THIS TIME.
[2019-06-23] VITALS (12 sets, daily range): BP systolic 94–114; BP diastolic 56–80
--- NOTE | 2019-06-23 00:12 | NUR ---
PT. ASSISTED TO BSC. PT. SITTING UP AT BEDSIDE. IV FLUIDS CONTINUE TO INFUSE ORDERED. CALL IGHT REMAINS WITHIN REACH. WILL CONTINUE TO CLOSELY MONITOR.
--- NOTE | 2019-06-23 02:01 | NUR ---
PT. MEDICATED PER HER REQUEST. DENIES COMPLAINTS OF CP OR SOB. RESPS EVEN AND UNLABORED. REMAINS AFEBRILE IN NO DISTRESS. CALL LIGHT REMAIN WITHIN REACH.
--- NOTE | 2019-06-23 03:15 | NUR ---
PT. WITH C/O FEELING LIKE HER SUGAR IS DROPPING. ACCUCHECK FOUND TO BE 68. PROVIDED WITH SNACK AND JUICES AT THIS TIME. REMAINS SITTING UP IN CHAIR IN NO DISTRESS. BP/HR STABLE AT THIS TIME.
--- NOTE | 2019-06-23 04:16 | NUR ---
LAB AT BEDSIDE TO DRAW PATIENT.
[2019-06-23 05:17] LABS: ALBUMIN 3.6 g/dL (3.2-5.0); BILIRUBIN, TOTAL 1.1 mg/dL (0.0-1.4); CREATININE 2.8 mg/dL (0.5-1.0); POTASSIUM 4.8 mmol/l (3.5-5.1); TOTAL PROTEIN 6.7 g/dL (6.3-8.2)
--- NOTE | 2019-06-23 05:35 | NUR ---
PT. ASSISTED TO BEDSIDE COMMODE AND THEN BACK TO BED. PT. AMBULATORY WITH STEADY GAIT BACK TO BED. IV FLUIDS CONTINUE TO INFUSE ORDERED. PT. DENIES OTHER COMPLAINTS OR NEEDS AT THIS TIME.
--- NOTE | 2019-06-23 06:10 | NUR ---
NEB TREATMENT COMPLETE AT THIS TIME. PT. RESTING IN BED IN NO DISTRESS. RESPS REMAIN EVEN AND UNLABORED. VOICES NO COMPLAINTS OR NEEDS. CONTINUES IN A-FIB WITH RATE IN THE 90-110'S. WILL CONTINUE TO ASSESS.
--- NOTE | 2019-06-23 07:00 | NUR ---
PT ASSISTED TO BSC TO VOID. PT THEN ASSISTED TO CHAIR. MILD DYSPNEA ON EXERTION. AM ASSESSMENT COMPLETED AT THIS TIME. PT IS ALERT AND ORIENTED X3. IV PATENT X1. CALL LIGHT IN REACH. WILL CONTINUE TO MONITOR.
--- NOTE | 2019-06-23 07:55 | NUR ---
DR URRUTIA NOTIFIED OF CONSULT.
--- NOTE | 2019-06-23 10:00 | NUR ---
DR SMITH AT BEDSIDE AT THIS TIME.
--- NOTE | 2019-06-23 10:30 | NUR ---
PT TO MED SURG FLOOR VIA FOR SHOWER ACCOMPANIED BY THIS BILLING DEPARTMENT SUPERVISOR. PT SHOWERED. LINENS CHANGED. PT HAD MILD DYSPNEA ON EXERTION.
--- NOTE | 2019-06-23 11:20 | NUR ---
PT RETURNED TO ICU BED 7 VIA WHEELCHAIR. ASSISTED BACK TO BED.
--- NOTE | 2019-06-23 11:40 | NUR ---
SET UP FOR NOON MEAL
--- NOTE | 2019-06-23 14:00 | NUR ---
PT RESTING IN BED WITH EYES CLOSED. RESP ARE EVEN AND UNLABORED. NO DISTRESS NOTED. CALL LIGHT IN REACH. WILL CONTINUE TO MONITOR.
--- NOTE | 2019-06-23 16:00 | NUR ---
PT RESTING IN BED AWAKE WATCHING TV. RESP ARE EVEN AND UNLABORED. NO DISTRESS NOTED. CALL LIGHT IN REACH. WILL CONTINUE TO MONITOR
--- NOTE | 2019-06-23 17:27 | NUR ---
PT ASSISTED TO RECLINER AND SET UP FOR PM MEAL.
--- NOTE | 2019-06-23 21:30 | NUR ---
PT. ASSISTED TO BEDSIDE CHAIR AT THIS TIME. DOXYCYCLINE INFUSING WITHOUT SIGNS OF INFILTRATION OR EXTRAVASATION. CALL LIGHT REMAINS WITHIN REACH. WILL CONTINUE TO ASSESS.
--- NOTE | 2019-06-23 22:04 | NUR ---
RT AT BEDSIDE TO ADMINISTER NEB TREATMENT.
--- NOTE | 2019-06-23 23:02 | NUR ---
PT. ASSISTED BACK TO BED AT THIS TIME. DOXY HAS BEEN INFUSED WITHOUT SIGNS OF REACTION OR EXTRAVASATION. PT. C/O PAIN DOWN THE ENTIRE RT. ARM SHOULDER TO HAND. ARM PLACED ON PILLOW TO PROVIDE COMFORT. REMAINS IN NO DISTRESS.
[2019-06-24] VITALS (13 sets, daily range): BP systolic 71–117; BP diastolic 58–77
--- NOTE | 2019-06-24 01:00 | NUR ---
PT. RESTING IN BED IN NO DISTRESS. LAYING ON LT. SIDE. BP/HR REMAIN STABLE. RESPS EVEN AND UNLABORED. DENIES COMPLAINTS OR NEEDS. WILL CONTINUE TO CLOSELY MONITOR.
--- NOTE | 2019-06-24 03:50 | NUR ---
PT. CONTINUES TO REST WITH EYES CLOSED IN NO DISTRESS. RESPS REMAIN EVEN AND UNLABORED. SKIN WARM AND DRY. GOMES. VOICES NO COMPLAINTS OR NEEDS A THIS TIME. CALL LIGHT REMAINS WITHIN REACH. WILL CONTINUE TO ASSESS.
--- NOTE | 2019-06-24 05:11 | NUR ---
LAB AT BEDSIDE TO DRAW PATIENT.
--- NOTE | 2019-06-24 05:30 | NUR ---
PT. ASSISTED TO BSC AT THIS TIME. APPROX 300 CC OUT AT THIS TIME. RT. AT BEDSIDE TO ADMINISTER NEB TREATMENT. CALL LIGHT REMIANS WITHIN REACH. DENIES COMPLAINTS OR NEEDS.
[2019-06-24 05:47] LABS: CREATININE 2.4 mg/dL (0.5-1.0); MAGNESIUM 2.1 mg/dL (1.6-2.3); POTASSIUM 4.9 mmol/l (3.5-5.1)
--- NOTE | 2019-06-24 06:45 | NUR ---
RECIEVED REPORT FROM AYAKA GUTIERRES. ASSUMED PT CARE.
--- NOTE | 2019-06-24 07:45 | NUR ---
PT RESTING IN BED, A&OX4, ABLE TO MAKE NEEDS KNOWN. EXERTIONAL SOB CONTINUES. ASSESSMENT COMPLETED. CALL LIGHT IN REACH. WILL MONITOR.
--- NOTE | 2019-06-24 08:35 | NUR ---
DR. SMITH AT BEDSIDE FOR ASSESSMENT AND TO DISCUSS PLAN OF CARE. NEW ORDERS RECIEVED
--- NOTE | 2019-06-24 08:42 | NUR ---
LAB AT BEDSIDE FOR BLOOD DRAW.
[2019-06-24 09:11] LABS: PROTHROMBIN TIME 30.2 SECONDS (9.0-12.5)
--- NOTE | 2019-06-24 09:45 | NUR ---
PT ASSISTED TO BSC, VOIDED 150OP. THEN BACK TO BED . PT GIVEN SUPPOS ORDERED. BRIEF PLACED PER REQUEST. CALL LIGHT IN REACH. WILL MONITOR.
--- NOTE | 2019-06-24 11:00 | NUR ---
PT ASSISTED TO BSC, NO BM . RT AT BEDSIDE FOR TREATMENT.
--- NOTE | 2019-06-24 12:00 | NUR ---
PT ASSISTED TO RECLINER TO SIT UP FOR A WHILE. BLE ELEVATED, CALL LIGHT IN REACH. WILL MONITOR.
--- NOTE | 2019-06-24 12:29 | NUR ---
DAUGHTER CALLED, CORDLESS TAKEN TO PT.
--- NOTE | 2019-06-24 13:00 | NUR ---
PT ASSISTED TO BSC, THEN BACK TO RECLINER. PT TOLERATED TRANSFER WELL. SOME SOB WITH EXERTION NOTED. CALL LIGHT IN REACH. WILL MONITOR.
--- NOTE | 2019-06-24 14:55 | NUR ---
PT RESTING, IN RECLINER WATCHING TV, OFFERS NO COMPLAINTS AT THIS TIME. CALL LIGHT IN REACH. WILL MONITOR.
--- NOTE | 2019-06-24 16:02 | NUR ---
PT ASSISTED TO BSC, VOIDED 300 OP. THEN BACK TO THE RECLINER. CALL LIGHT IN REACH. WILL MONITOR.
--- NOTE | 2019-06-24 17:30 | NUR ---
DIETARY ON UNIT, DINNER TRAY SET UP.
--- NOTE | 2019-06-24 18:09 | NUR ---
PT WATCHING TV, UP IN RECLINER. RESPIRATIONS EVEN/UNLABORED. CALL LIGHT IN REACH. WILL MONITOR.
--- NOTE | 2019-06-24 20:00 | NUR ---
PT AWAKE RESTING IN RECLINER. PT IS ALERT AND ORIENTED X3 . O2 N/C ON AT 2.5L AND O2 SAT 100%. NO DISTRESS NOTED. PT DOES GET SHORT OF BREATH WITH EXERTION. LUNGS CLEAR IN UPPER LOBES WITH DIMINISHED BREATH SOUNDS IN MID TO LOWER LOBES. ABD SOFT WITH BOWEL SOUNDS PRESENT IN ALL FOUR QUADS. NO LOWER EXT EDEMA NOTED. BILAT LOWER LEGS ARE ELEVATED IN RECLINER .PEDAL PULSES PALPATED BILAT. HEPLOCK PATENT IN RT WRIST AND FLUSHED WITHOUT ANY DIFFICULTY. MONITOR READING AFIB HR LOW 100'S WITH OCC PACED BEAT. PT DENIES ANY SHORTNESS OF BREATH OR DIFFICULTY BREATHING. PT IS AFEBRILE. PT ENCOURAGED TO USE INSENTIVE SPIROMETRY 10X HR. PT STATES SHE HAS BEEN USING I.S. AND FLUTTER VALVE. PT OFFERS NO COMPLAINTS AT THIS TIME. FREQUENT ROUNDS MADE. CALL JACKSON WITHIN REACH.
--- NOTE | 2019-06-24 20:45 | NUR ---
ACCUCHECK 236 . MEDICATED WITH 2 UNITS OF NOVOLOG INSULIN. ASSISTED BACK TO BED FROM [facility] [place]. GAIT IS STEADY. VOIDED 200CC OF CLEAR YELLOW URINE . REPOSITIONED IN BED. OFFERS NO COMPLAINTS. CALL JACKSON WITHIN REACH.
--- NOTE | 2019-06-24 21:20 | NUR ---
PT COMPLAINING OF BURNING WHILE IV ANTIBIOTIC INFUSING. SITE FLUSHED WITHOUT ANY DIFFICULTY NO REDNESS OR SWELLING AT SITE. NEW IV SITE INSERTED ON SECOND ATTEMPT IN LEFT HAND. NEW #24G INSERTED WITH GOOD BLOOD RETURN. IV ANTIBIOTIC INFUSING INTO LEFT HAND IV SITE WITHOUT ANY BURNING OR DISCOMFORT. FREQUENT ROUNDS MADE. CALL JACKSON WITHIN REACH.
--- NOTE | 2019-06-24 22:10 | NUR ---
RESTING IN BED WITH EYES CLOSED. O2 N/C ON AT 2.5. RESP EVEN AND UNLABORED. NO DISTRESS NOTED. MONITOR AFIB . VSS. O2 SAT 100%. FREQUENT ROUNDS MADE. CALL JACKSON WITHIN REACH.
--- NOTE | 2019-06-24 23:02 | NUR ---
ASSISTED BACK TO BED AND REPOSITIONED FOR COMFORT AFTER USING BCS. RESP EVEN AND UNLABORED. SOME SHORTNESS OR BREATH WITH EXERTION. O2 SAT 100% WHEN IN BED. HEPLOCK PATENT IN RT WRIST AND LEFT HAND . MONITOR AFIB HR LOW 100'S. B/P 100/77. PT OFFERS NO COMPLAINTS. VOIDED 300 CC OF CLEAR YELLOW URINE. FREQUENT ROUNDS MADE. CALL JACKSON WITHIN REACH.
[2019-06-25] VITALS (8 sets, daily range): BP systolic 92–119; BP diastolic 65–71
--- NOTE | 2019-06-25 00:30 | NUR ---
RESTING IN BED WITH EYES CLOSED. RESP EVEN AND UNLABORED. O2 SAT 100% ON 2.5L. NO DISTRESS NOTED. MONITOR READING AFIB HR 90'S. FREQUENT ROUNDS MADE . CALL JACKSON WITHIN REACH.
--- NOTE | 2019-06-25 02:20 | NUR ---
ASSISTED BACK TO BED AFTER USING BSC. PT VOIDED 350 CC OF CLEAR YELLOW URINE. REPOSITIONED FOR COMFORT. HEPLOCK PATENT X2. MONITOR AFIB HR 90'S. O2 SAT REMAINS 100%. PT OFFERS NO COMPLAINTS. FREQUENT ROUNDS MADE. CALL JACKSON WITHIN REACH.
--- NOTE | 2019-06-25 04:10 | NUR ---
PT RESTING IN BED WITH EYES CLOSED. RESP EVEN AND UNLABORED. NO DISTRESS NOTED. CALL JACKSON WITHIN REACH.
[2019-06-25 05:12] LABS: HEMOGLOBIN 11.2 g/dl (12.0-16.0); MEAN CELL VOLUME 90.2 fL CALC (80.0-100.0); MEAN CORPUSCULAR HGB 28.9 pG CALC (26.0-32.0); RED BLOOD COUNT 3.88 mill/uL (4.20-5.60); RED CELL DISTRI WIDTH 15.2 % (11.5-15.5)
[2019-06-25 05:25] LABS: ALBUMIN 3.2 g/dL (3.2-5.0); CREATININE 2.3 mg/dL (0.5-1.0); INTERNATIONAL NORMALIZED RATIO 2.6 RATIO (0.7-1.3)
[2019-06-25 05:27] LABS: ALBUMIN 3.3 g/dL (3.2-5.0); BILIRUBIN, TOTAL 1.4 mg/dL (0.0-1.4); CREATININE 2.3 mg/dL (0.5-1.0); POTASSIUM 4.8 mmol/l (3.5-5.1)
--- NOTE | 2019-06-25 05:30 | NUR ---
PT ASSISTED BACK TO BED AFTER USING BSC. PT VOIDED 200CC OF CLEAR YELLOW URINE. BEDSCALE WT 198.3. WT WAS TAKEN TWICE TO CHECK ACCURACY. ASSESSMENT UNCHANGED. OFFERS NO COMPLAINTS. NO DISTRESS NOTED. MONITOR READING AFIB WITH OCC PVC'S AND OCC PACED BEATS RATE LOW 100'S. FREQUENT ROUNDS MADE. CALL JACKSON WITHIN REACH.
--- NOTE | 2019-06-25 06:05 | NUR ---
CALL PLACED TO DR URRUTIA AND INFORMED OF CRITICAL LAB RESULTS. INFORMED OF BOTH CHEM PROFILE AND RENAL PANEL RESULTS. BUN OF 83 AND 81, CREAT 2.3, GFR 21, PHOS 5.4, IRON OF 22, PTH 338.8. NO ORDERS RECEIVED AT THIS TIME. DR URRUTIA AWARE OF TREND.
--- NOTE | 2019-06-25 07:00 | NUR ---
PT RESTING IN BED AWAKE WATCHING TV. PT IS ALERT AND ORIENTED X3. SHIFT ASSESSMENT COMPLETE AT THIS TIME. IV PATENT X1. O2 TURNED DOWN TO 1L NC. PT O2 SAT REMAINS AT 97-100%. CALL LIGHT IN REACH. WILL CONTINUE TO MONITOR.
--- NOTE | 2019-06-25 07:35 | NUR ---
PT SET UP FOR AM MEAL.
--- NOTE | 2019-06-25 08:15 | NUR ---
DR SMITH AT BEDSIDE.
--- NOTE | 2019-06-25 10:05 | NUR ---
PT ASSISTED TO BSC TO VOID THEN ASSISTED TO RECLINER. PT TOLERATED WELL. PT TAKEN OFF OF O2 AT THIS TIME DUE TO NOT O2 DEPENDENT AT HOME.O2 SAT REMAINS 96-100% ON ROOM AIR. CALL LIGHT IN REACH. WILL CONTINUE TO MONITOR.
--- NOTE | 2019-06-25 11:15 | NUR ---
IV site discontinued, cath intact. No edema , no redness, voices no discomfort.
--- NOTE | 2019-06-25 11:30 | NUR ---
REPORT CALLED TO GELACIO WALTERS ON MED SURG
--- NOTE | 2019-06-25 11:34 | NUR ---
PT SET UP FOR NOON MEAL
--- NOTE | 2019-06-25 12:15 | NUR ---
PT TO [facility] VIA WHEELCHAIR ACCOMPANIED BY THIS CENTRIFUGAL OPERATOR ASSITED TO CHAIR. UPDATED BEDSIDE REPORT GIVEN GIVEN TO GELACIO. ALL BELONGINGS SENT WITH PATIENT. PATIENT TOLERATED TRANSFER WELL.
--- NOTE | 2019-06-25 15:47 | NUR ---
PT RESTING. NO C/O PAIN OR NEEDS. CALL LIGHT IN REACH. WILL CONTINUE TO MONITOR.
--- NOTE | 2019-06-25 19:09 | NUR ---
REPORT RECEIVED FROM SELENA BRIZUELA. PT RESTING IN BED. NO S/S OF DISTRESS AT THIS TIME. SAFETY PRECAUTIONS IN PLACE. WILL CONTINUE TO MONITOR.
--- NOTE | 2019-06-25 21:08 | NUR ---
PT RESTING IN BED. ALERT AND ORIENTED. RESPIRATIONS EVEN AND UNLABORED ON O2 @ 2L VIA NC. LUNGS SOUND CLEAR/DIMINISHED. PEDAL PULSE STRONG. #24 IN PAITENT AND APEARS HEALTHY. TELE IN PLACE. CALL JACKSON WITHIN REACH. WILL CONTINUE TO MONITOR.
--- NOTE | 2019-06-25 22:56 | NUR ---
PT COMPLAINING OG IV SITE BURNING #24 LH AND IS WANTING A NEW IV. NEW IV TO BE STARTED.
[2019-06-26] VITALS (16 sets, daily range): BP systolic 86–112; BP diastolic 52–78
--- NOTE | 2019-06-26 01:40 | NUR ---
PT COMPLAINING OF SOB STATES "I DO BREATHING TREATMENTS AT HOME." MD NOTIFIED, NEW ORDERS OBTAINED AND TO BE CARIED OUT. SAFETY PRECAUTIONS IN PLACE. WILL CONTINUE TO MONITOR.
--- NOTE | 2019-06-26 04:00 | NUR ---
DR. LI AT BEDSIDE. NEW ORDERS OBTAINED AND TO BE CARRIED OUT.
[2019-06-26 05:23] LABS: HEMOGLOBIN 12.3 g/dl (12.0-16.0); IMMATURE GRANULOCYTES 0.7 % (0.0-5.0); MEAN CELL VOLUME 90.9 fL CALC (80.0-100.0); MEAN CORPUSCULAR HGB 28.7 pG CALC (26.0-32.0); MEAN CORPUSCULAR HGB CONC 31.5 g/L CALC (32.0-36.0); NEUT# 8.87 thou/uL (2.00-7.15); RED BLOOD COUNT 4.29 mill/uL (4.20-5.60); RED CELL DISTRI WIDTH 15.4 % (11.5-15.5)
[2019-06-26 05:40] LABS: INTERNATIONAL NORMALIZED RATIO 2.3 RATIO (0.7-1.3); PROTHROMBIN TIME 23.3 SECONDS (9.0-12.5)
[2019-06-26 05:44] LABS: ALBUMIN 3.3 g/dL (3.2-5.0); BILIRUBIN, TOTAL 1.7 mg/dL (0.0-1.4); CREATININE 2.4 mg/dL (0.5-1.0); TOTAL PROTEIN 6.1 g/dL (6.3-8.2)
[2019-06-26 05:52] LABS: POTASSIUM 5.3 mmol/l (3.5-5.1)
--- NOTE | 2019-06-26 06:05 | NUR ---
PT BUN 89. NOTIFIED OF PT MORNING LABS AND PT BEING SOB. NEW ORDERS PROVIDED FOR PT TO BE TRANSFERRED TO ICU TO BE PLACED ON BIPAP, IX DOSE OF LASIX 40MG IV. ORDERS TO BE CARRIED OUT.
--- NOTE | 2019-06-26 06:30 | NUR ---
PT. RECEIVED FROM MED SURGE NURSE VIA W/C. PT. WITH STEADY GAIT AND ABLE TO AMBULATE TO BED WITH NO DISTRESS NOTED. RT IN AT BEDSIDE TO ASSESS RESPIRATORY STATUS. PER RT'S RECCOMENDATION NO BIPAP NEEDED AT THIS TIME. PT. SPO2 100% ON O2 @2LITERS/MIN PER NC. IV SITE PATENT AND SL TO RW. TEMP 94.8 AND APPLIED BEAR HUGGER AT THIS TIME. PT. IS ORIENTED TO ROOM AND CALL LIGHT AND VERBALIZES UNDERSTANDING. CALL LIGHT IS IN REACH. MED-SURGE NURSE TO CALL DAUGHTER AND NOTIFY HER OF PT'S MOVE TO ICU.
--- NOTE | 2019-06-26 06:32 | NUR ---
PT TRANSFERRED TO ICU PER MD ORDERS.
--- NOTE | 2019-06-26 07:00 | NUR ---
PT RESTING IN BED AWAKE. PT IS ALERT AND ORIENTED X3. SHIFT ASSESSMENT COMPLETED AT THIS TIME. IV PATENT X1. SYKES PLACED USING STERILE TECHNIQUE. IMMEADIATE RETURN OF CLEAR YELLOW URINE PER DR SMITH ORDERS. PT TOLERATED WELL. CALL LIGHT IN REACH. WILL CONTINUE TO MONITOR.
--- NOTE | 2019-06-26 07:45 | NUR ---
PT SET UP FOR AM MEAL
--- NOTE | 2019-06-26 09:15 | NUR ---
DR SMITH AT BEDSIDE AT THIS TIME
--- NOTE | 2019-06-26 10:00 | NUR ---
PT PLACED ON BED BAUTISTA FOR BM
--- NOTE | 2019-06-26 10:45 | NUR ---
WHEAT CLEANER REPORTED THAT PT HAD A LARGE FORMED BM.
--- NOTE | 2019-06-26 11:40 | NUR ---
PT SET UP FOR NOON MEAL
--- NOTE | 2019-06-26 12:30 | NUR ---
PT RESTING IN BED AWAKE. RESP ARE EVEN AND UNLABORED. NO DISTRESS NOTED. CALL LIGHT IN REACH. WILL CONTINUE TO MONITOR.
--- NOTE | 2019-06-26 12:30 | NUR ---
PT ASSISTED TO SIT UP ON SIDE OF BED
--- NOTE | 2019-06-26 14:00 | NUR ---
PT ASSISTED UP TO RECLINER.
--- NOTE | 2019-06-26 14:20 | NUR ---
FAMILY AT BEDSIDE AT THIS TIME
--- NOTE | 2019-06-26 14:27 | NUR ---
ULTRASOUND AT BEDSIDE AT THIS TIME
--- NOTE | 2019-06-26 16:00 | NUR ---
PT SITTING UP IN RECLINER VISITING WITH VISITORS. RESP ARE EVEN AND UNLABORED. NO DISTRESS NOTED. CALL LIGHT IN REACH. WILL CONTINUE TO MONITOR.
--- NOTE | 2019-06-26 16:35 | NUR ---
PT ASSISTED BACK TO BED AT THIS TIME.
--- NOTE | 2019-06-26 17:30 | NUR ---
PT SET UP WITH PM MEAL
--- NOTE | 2019-06-26 17:57 | NUR ---
FAMILY REQUESTING THAT PATIENT BE PULLED UP IN BED. THIS SLUBBER TENDER INTO ROOM. LOWERED HEAD OF BED, ENCOURAGED PATIENT TO PULL SELF UP IN BED. PATIENT ABLE TO RAISE ARMS, BEND LEGS ANS PULL SELF UP IN BED. THIS SLUBBER TENDER RAISED HOB. PATIENT STATES "THAT'S BETTER".
--- NOTE | 2019-06-26 18:35 | NUR ---
THIS WATCH PARTS INSPECTOR INTO ROOM PT SITTING UP ON SIDE OF BED. DAUGHTER STATED THAT PATINET NEED HELP BACK IN BED. ENCOURAGED PATIENT TO ATTEMPT GETTING PUTTING LEGS IN BED SELF. PATIENT ABLE TO PLACE LEGS IN BED SELF. GENTLEMAN AT BEDSIDE THEN STATED THAT MATTRESS SHOULD BE PULLED UP EXPLAINED THAT MATTRESS WAS IN PROPER PLACE. CALL LIGHT IN REACH. WILL CONTINUE TO FREDRICK
--- NOTE | 2019-06-26 19:15 | NUR ---
PATIENT LAYS WITH HOB 30 DEGREES. ON 2L/MIN NC, NO SOB NOTED. ALERT AND ORIENTED X4. HEAD TO TOE NURSING ASSESSMENT PERFORMED, SEE CHARTING. PATIENT WAS ABLE TO PULL HERSLE UP IN BED WITH CUEING, AGREED TO LAY ON LEFT SIDE WITH SUPPORT ON BACK. BLE ELEVATED WITH PILLOWS. TEMP 97.2 SO BEAR HUGGER WAS REMOVED, PATIENT COMPLAINED OF IT BEING HOT WELL. PT C/O KNEE PAIN, TYLENOL WAS ALREADY GIVEN. R-WRIST 22G IV INTACT AND SALINE LOCKED. SYKES CATHETER INTACT AND DRAINS TO GRAVITY, DRAINS PALE YELLOW AND CLEAR URINE. AFIB ON TELMETRY, HR BETWEEN 90'S TO 105 BPM. POC FOR TONIGHT DISCUSSED. SELF REPOSITIONS WELL. CALL LIGHT WITHIN REACH. WILL CONTINUE TO MONITOR.
--- NOTE | 2019-06-26 20:40 | NUR ---
PARISHLOD SUGAR CHECKED AND PATIENT REQUESTS TO SIT IN BS CHAIR, SHE C/O BEING "WRAPPED AROUND CORDS." PATIENT EDUCATED ON MONITORING OF VS, TELEMETRY.
--- NOTE | 2019-06-26 21:00 | NUR ---
PATIENT SAT UP ON SIDE OF BED AND DECIDED TO LAY BACK DOWN. BEDTIME MEDICATIONS GIVEN AND PT TOLERATED. REQUESTED STRAWBERRY ICE CREAM, HOB ELEVATED NEAR 90 DEGREES, PT EATING HER ICE CREAM, ICED WATER PROVIDED WELL. PATIENT ABLE TO PULL HER SELF UP, DOES BECOME SOB WITH EXERTION. CALL LIGHT WITHIN REACH.
--- NOTE | 2019-06-26 22:30 | NUR ---
patient easily arouses when spoken to. lays on her right side. antibiotic now infusing. rwrist iv intact and antiobiotic infusing with no dificulty. munoz emptied, 1000 ml out. temp 97.2. on 2l/min nc. no sob noted. afib on telemetry, hr 77 bpm. call light within reach.
[2019-06-27] VITALS (17 sets, daily range): BP systolic 85–126; BP diastolic 45–75
--- NOTE | 2019-06-27 00:22 | NUR ---
PATIENT LAYS WITH HOB 30 DEGREES, WATCHES TV. TEMP IS 95.9, TYMPANIC BEAR HUGGER APPLIED, WILL CONTINUE TO MONITOR. AFIB ON TELEMETRY. ON 2L/MIN NC. NO COMPLAINTS OR NEEDS AT THIS TIME. CALL LIGHT WITHIN REACH.
--- NOTE | 2019-06-27 02:19 | NUR ---
PATINT LAYS WITH HOB 30 DEGREES. ON 2L/MIN NC, NO SOB NOTED. BEAR HUGGER REMAINS IN PLACE, TEMP IS 95.6. BLE ELEVATED WITH PILLOWS. PATIENT AROUSES EASILY WITH VERBAL STIMULI. AFIB ON TELEMETRY, HR 110 BPM. NO NEEDS AT THIS TIME. SYKES CATHETER EMPTIED, 1000 ML. WILL CONTINUE TO MONITOR.
--- NOTE | 2019-06-27 03:42 | NUR ---
PATIENT GIVEN TYLENOL FOR PAIN ON RIGHT KNEE. ICE PACK WAS OFFERED. PATIENT IS SITTING ON SIDE OF THE BED AND BATH WAS OFFERED, SHE AGREED AND PARTICIPATED IN HER BED BATH, LINENS WERE CHANGED, HAIR WAS COMBED. AGREES TO CALL WHEN WANTS TO LAY BACK DOWN. CALL LIGHT WITHIN REACH.
--- NOTE | 2019-06-27 04:05 | NUR ---
PATIENT SAFELY LAYED BACK IN BED. BEAR HUGGER REAPPLIED, WARM BLANKETS APLIED. PT ON MNC 2L/MIN, SATS 99%. SOB NOTED WITH EXERTION. WEEPING NOTED ON BLE, BLE ELEVATED WITH PILLOWS. BEAR HUGGER WAS NOT PLACED ON LEFT LEG DUE TO ICE PACK ON LEFT KNEE. CALL LIGHT WITHIN REACH.
[2019-06-27 04:16] LABS: HEMATOCRIT 36.8 % (37.0-47.0); HEMOGLOBIN 11.5 g/dl (12.0-16.0); MEAN CELL VOLUME 90.6 fL CALC (80.0-100.0); MEAN CORPUSCULAR HGB 28.3 pG CALC (26.0-32.0); MEAN CORPUSCULAR HGB CONC 31.3 g/L CALC (32.0-36.0); RED BLOOD COUNT 4.06 mill/uL (4.20-5.60); RED CELL DISTRI WIDTH 15.2 % (11.5-15.5)
[2019-06-27 04:33] LABS: INTERNATIONAL NORMALIZED RATIO 1.8 RATIO (0.7-1.3); PROTHROMBIN TIME 18.6 SECONDS (9.0-12.5)
[2019-06-27 04:34] LABS: ALBUMIN 3.4 g/dL (3.2-5.0); CREATININE 2.3 mg/dL (0.5-1.0); TOTAL PROTEIN 6.2 g/dL (6.3-8.2)
[2019-06-27 04:39] LABS: BILIRUBIN, TOTAL 2.4 mg/dL (0.0-1.4); POTASSIUM 4.2 mmol/l (3.5-5.1)
--- NOTE | 2019-06-27 05:31 | NUR ---
patient c/o of feeling "too hot," temp was checked and reads 97.1F, bear hugger removed. patient was also able to stand on side of bed to zero bed out to check daily weight. patient now with hith 30 degrees. ble elevated. no compalints of pain. on 2l/min nc. afib on telemetry, hr 104 bpm. was able to drink water. call light within reach. will continue to monitor.
--- NOTE | 2019-06-27 06:55 | NUR ---
RECVD REPORT FROM AYAKA GOODWIN @START OF SHIFT. PT ON CALLBELL.
--- NOTE | 2019-06-27 07:39 | NUR ---
pt making frequent requests. sitting up in chair, eating breakfast.
--- NOTE | 2019-06-27 08:16 | NUR ---
DR SMITH @BEDSIDE WITH PT.
--- NOTE | 2019-06-27 08:49 | NUR ---
PT UP, WALKING UNIT, WITH RT STAFF, FOR 02 STUDY. USING STEADY GAIT.
--- NOTE | 2019-06-27 09:30 | NUR ---
PT OFF THE UNIT FOR U/S.
--- NOTE | 2019-06-27 09:45 | NUR ---
LINDA, FROM RADIOLOGY, REQUEST ENTIRE CHART.
--- NOTE | 2019-06-27 10:21 | NUR ---
PT RETURNED TO ICU1 IN STABLE CONDITION, AMBUALTED TO BED WITH ASSIST x1, PLACED BACK ON MONITORS, GIVEN EXTRA BLANKETS. PT USING BED CONTROLS AND REPOSITIONING SELF IN BED. CALLBELL W/IN REACH.
--- NOTE | 2019-06-27 10:34 | NUR ---
TYMP TEMP LOW, PT PLACED BACK ON BAIRHUGGER. IZZY @BEDSIDE FOR ROUNDS.
--- NOTE | 2019-06-27 12:08 | NUR ---
PT ATE MINIMAL LUNCH BUT DRINKS PLENTY OF FLUID. NOW, SLEEPING IN BED. NO S/S OF DISTRESS AT THIS TIME. WILL CONTINUE TO MONITOR.
--- NOTE | 2019-06-27 12:30 | NUR ---
PARTIAL LINEN CHANGE D/T WHEEPING BLE.
--- NOTE | 2019-06-27 13:45 | NUR ---
@BEDSIDE WITH PTRamon
--- NOTE | 2019-06-27 14:02 | NUR ---
TYM TEMP SHOWS HYPOTHERMIA. RECTAL TEMP IS 98.1. PT REQUEST BERNA HUGGER BE REMOVED. PT ABLE TO TURN SELF BUT C/O ACHINESS TO PUNTURE SITE FOR THORACENTESIS THIS AM BUT INITALLY DENIED PAIN MEDS. NOW STATES "THAT'LL BE OK". PT REMAINS ON 2L O2, SATS 100%.
--- NOTE | 2019-06-27 14:56 | NUR ---
PT MEDICATED FOR NAUSEA, GIVEN EMESIS BAG & CRACKERS. PT DENIES PAIN AT THIS TIME.
--- NOTE | 2019-06-27 15:01 | NUR ---
RT @BEDSIDE TO REPLACE "BROKEN" INCENTIVE SPIROMETER WITH EDUCATION. PT DEMONSTRATED UNDERSTANDING.
--- NOTE | 2019-06-27 15:39 | NUR ---
PER FELIBERTO HAM, PTS DAUGHTER WANTS PT IN [facility] IN [place]; PREDECTS PT TRANSFERED SUNDAY/SUNDAY.
--- NOTE | 2019-06-27 17:22 | NUR ---
PT SITTING UP IN BED. REPOSITIONED BY STAFF.
--- NOTE | 2019-06-27 17:36 | NUR ---
PT 100% ON 2L NC. O2 DROPPED TO 1L.
--- NOTE | 2019-06-27 18:02 | NUR ---
DIETARY @BEDSIDE AGAIN FOR MEAL PREFERENCES.
--- NOTE | 2019-06-27 18:27 | NUR ---
PT SLEEPING IN BED, NO S/S OF DISTRESS AT THIS TTIME. BREATHING EVEN/UNLABORED. 99% ON 1L NC. WILL CONTINUE TO MONITOR.
--- NOTE | 2019-06-27 19:05 | NUR ---
REPORT GIVEN BY ANGELA MARLEY. PATIENT ALERT AND ORIENTED. AWAKE AND WATCHING TV IN BED. RESP EVEN AND UNLABORED, 1L VIA NC. ABD SOFT AND BOWEL SOUNDS PRESENT. SYKES DRAINING CLEAR, YELLOW URINE. BLE EDEMA +1. A-FIB ON TELE. PATIENT INFORMED TO CALL WITH ANY QUESTIONS OR CONCERNS. FALL PRECAUTIONS IN PLACE. ASSESMENT COMPLETE.
--- NOTE | 2019-06-27 22:17 | NUR ---
PATIENT RESTING WITH EYES CLOSED. RESP EVEN AND UNLABORED. NO S/S OF DISTRESS NOTED.
[2019-06-28] VITALS (17 sets, daily range): BP systolic 97–143; BP diastolic 55–94
--- NOTE | 2019-06-28 00:47 | NUR ---
PSTIENT RESTING WITH EYES CLOSED. RESP EVEN AND UNLABORED. NO S/S OF DISTRESS NOTED.
--- NOTE | 2019-06-28 03:45 | NUR ---
PATIENT AWAKE IN BED. SYKES CATH EMPTIED. PATIENT STATES THAT SHE IS FEELING BETTER THIS MORNING. RESP EVEN AND UNLABORED. NO S/S OF DISTRESS NOTED.
[2019-06-28 05:07] LABS: HEMATOCRIT 37.2 % (37.0-47.0); HEMOGLOBIN 11.8 g/dl (12.0-16.0); MEAN CELL VOLUME 89.6 fL CALC (80.0-100.0); MEAN CORPUSCULAR HGB 28.4 pG CALC (26.0-32.0); MEAN CORPUSCULAR HGB CONC 31.7 g/L CALC (32.0-36.0); RED BLOOD COUNT 4.15 mill/uL (4.20-5.60); RED CELL DISTRI WIDTH 15.1 % (11.5-15.5)
[2019-06-28 05:24] LABS: INTERNATIONAL NORMALIZED RATIO 1.6 RATIO (0.7-1.3); PROTHROMBIN TIME 16.5 SECONDS (9.0-12.5)
[2019-06-28 06:21] LABS: ALBUMIN 3.2 g/dL (3.2-5.0); CREATININE 2.1 mg/dL (0.5-1.0); POTASSIUM 3.5 mmol/l (3.5-5.1); TOTAL PROTEIN 5.8 g/dL (6.3-8.2)
--- NOTE | 2019-06-28 07:07 | NUR ---
PT RESTING IN BED, NO SIGNS OF DISTRESS NOTED,RESP EVEN AND UNLABORED. PT ALERT AND ORIENTED X3, DISCUSSED POC, PT HAS PITTING EDEMA TO BLE, ELEVATED ON PILLOW. SYKES DRAINING CLEAR YELLOW URINE TO GRAVITY. ORAL CARE GIVEN, MEDICATED PER MAR. REDNESS TO ABD FOLDS NOTED. ASSESSMENT COMPLETED, CALL LIGHT IN REACH,CONTINUE TO MONITOR.
--- NOTE | 2019-06-28 07:52 | NUR ---
PT ADJUSTED IN BED FOR BREAKFAST. PT VOICES NO NEEDS OR COMPLAINTS AT THIS TIME. CALL LIGHT IN REACH,CONTINUE TO MONITOR.
--- NOTE | 2019-06-28 08:47 | NUR ---
PT RESTING IN BED, DONE EATING BREAKFAST, DISCUSSED AM MEDS, PT VERBALIZED UNDERSTANDING. MEDICATED PER DEC, PT REQUESTING SOCK REMOVED FROM L FOOT DUE TO EDEMA. CALL LIGHT IN REACH,CONTINUE TO MONITOR.
--- NOTE | 2019-06-28 10:17 | NUR ---
PT ASSISTED TO BSC FOR BM. THEN ASSISTED PT TO RECLINER AT BEDSIDE. PT TOLERATED WELL. CALL LIGHT IN REACH,CONTINUE TO MONITOR.
[2019-06-28] MEDS ORDERED: CARVEDILOL3.125 MG PO (11:19)
[2019-06-28] MEDS ORDERED: CORDARONE/200 MG/TAB PO (11:20)
[2019-06-28] MEDS ORDERED: COUMADIN1 MG PO (11:20)
--- NOTE | 2019-06-28 11:31 | NUR ---
AT BEDSIDE, TO DISCUSS POC. CONTINUE TO MONITOR.
--- NOTE | 2019-06-28 13:15 | NUR ---
X RAY TECH AT BEDSIDE ASSISTING PT TO BED FROM [facility] WHERE SHE HAD A BM. PT SAT ON SIDE OF BED AND WENT UNRESPONSIVE. RAPID RESPONSE TEAM CALLED. MONITOR READING HR 150'S, PT PALE. ASSISTED BY RN TO ADJUST PT TO SUPINE POSITION IN BED. PT THEN BECAME RESPONSIVE. X RAY TECH ASKED PT "ARE YOU OK?" PT RESPONDED WITH "YEAH I'M FINE" PT STATES THIS HAS HAPPENED TO HER BEFORE AND DID NOT FEEL IT COMING. RAPID RESPONSE TEAM AT BEDSIDE, PT IS NOW STABLE, RAPID RESPONSE CALLED ALL CLEAR. CALL LIGHT IN REACH,CONTINUE TO MONITOR.
--- NOTE | 2019-06-28 13:30 | NUR ---
MD CALLED AND MADE AWARE OF SYNCOPAL EVENT, ASKED MD IF HE WOULD WANT BONE DENSITY TECHNICIAN TO CALL [facility] FOR REMOTE INTERRIGATION OF DEVICE, DECLINED AT THIS TIME. PT IS STABLE RESTING IN BED, HR NOW SR 70, EKG ORDERED TO CONFIRM. CALL LIGHT IN REACH,CONTINUE TO MONITOR.
--- NOTE | 2019-06-28 15:00 | NUR ---
TECHNICAL SUPPORT ASSISTANT TO BEDSIDE WITH [facility] DEVICE FOR INTERROGATION OF DEFIB/PACEMAKER. PT AGREED, TOLERATED WELL. AWARE.
--- NOTE | 2019-06-28 16:53 | NUR ---
MD NOTIFIED OF ACCUCHECK 415, ORDERS TO GIVEN 6U MORE WITH SLIDING SCALE DOSE. PT C/O HEADACHE, MEDICATED WITH TYLENOL. CALL LIGHT IN REACH,CONTINUE TO MONITOR.
--- NOTE | 2019-06-28 18:42 | NUR ---
NOTIFIED MD OF REPEAT ACCUCHECK 392, AND OF PT'S HEART RHYTHM FREQUENT CHANGES. ORDERS FOR LAB DRAW MAGNESIUM LEVEL AND RECHECK ACCUCHECK IN 1 HR.
--- NOTE | 2019-06-28 19:10 | NUR ---
PT. RESTING IN BED AND ABLE TO PULL HERSELF UP IN BED WITHOUT DIFFICULTY. ASSESSMENT COMPLETED. IV SITE PATENT AND SL. SYKES CATHETER INTACT AND DRAINING AT GRAVITY LEVEL. SMALL GAUZE NOTED TO RIGHT SIDE OF BACK;CDI. PT. REPORTS SHE IS NOT TOO HUNGRY, BUT WILL ATTEMPT TO EAT SOUP AND IS SET UP AT THIS TIME. INSTRUCTED TO CALL FOR ANY NEEDS; VERBALIZES UNDERSTANDING. VSS. O2 INFUSING PER NC PER ORDER. CALL LIGHT IS IN REACH.
--- NOTE | 2019-06-28 20:10 | NUR ---
SPOKE WITH DR. DEMPSEY AND NOTIFIED HIM OF ACCUCHECK RESULTS 352 AND OF SLIDING SCALE DOSE ORDERED. PER MD HE WOULD LIKE 10 UNITS OF NOVOLOG TO BE GIVEN INSTEAD OF SLIDING SCALE DOSE. ALSO NOTIFIED HIM OF MAG LEVEL 1.9 AND OF B/P WITH SCHEDULED COREG, LASIX, AND AMIODARONE; ORDERS RECEIVED TO HOLD COREG AND GIVE 2 GRAMS OF MAGNESIUM. WILL CARRY THESE ORDERS AND UPDATE PT. WITH POC.
--- NOTE | 2019-06-28 21:00 | NUR ---
CBB AND SYKES CARE PROVIDED. NEW ELECTRODES AND GOWN PLACED. NYSTATIN POWDER APPLIED TO ABDOMINAL FOLD PER ORDER. SNACK PROVIDED. HR MAINLY PACED WITH INTERMITTENT FLUCTUATING HR. PT. DENIES PAIN. RAF PURDYER APPLIED FOR TEMP OF 96.1; WILL CONTINUE TO MONITOR. AWAITING MANGLE ROLLER TO BRING MAGNESIUM IT IS UNAVAILABLE IN OUR PYXIS. PO FLUIDS OFFERED. ENCOURAGED TO USE INCENTIVE SPIROMETER AN FLUTTER VALVE; VERBALIZES UNDERSTANDING.
--- NOTE | 2019-06-28 21:56 | NUR ---
ORDERED MAGNESIUM HUNG AT THIS TIME. VERIFIED DOSE WITH OTHER STAFF NURSE WELL. PT. DENIES NEEDS. CALL LIGHT IS IN REACH. PT. REMAINS PACED ON MONITOR.
--- NOTE | 2019-06-28 23:27 | NUR ---
HR ELEAVTED AT THIS TIME ON THE MONITOR UP TO 120'S. ENETERED PT'S ROOM AND PT. HAD A FEW TWITCHES AND WAS UNRESPONSIVE. WITHIN SECONDS PT. DID COME BACK TO BASELINE AND ALERT. PT. REPORTS THAT SHE IS A LITTLE WHOOZY BUT DENIES ANY CP. PT. SKIN IS WARM AND DRY. RHYTHYM BACK TO PACED AT THIS TIME. VSS. WILL CALL RT FOR EKG.
--- NOTE | 2019-06-28 23:40 | NUR ---
NOTIFIED RT OF NEED FOR EKG.
--- NOTE | 2019-06-28 23:53 | NUR ---
RT IN AT BEDSIDE OBTAINING EKG.
[2019-06-29] VITALS (9 sets, daily range): BP systolic 96–117; BP diastolic 51–65
--- NOTE | 2019-06-29 00:15 | NUR ---
[id number]- PT. HAD A FEW MORE EPISODES OF TACHYCARDIA WELL ANOTHER RUN OF V-TACH AND WAS SYMPTOMATIC WITH IT. ALSO HAD AICD SHOCK HER. PT. STATES, "I FEEL LIGHT HEADED AND FELT MY HEART QUIVER."B/P WNL. PT. IS INTERMITTENTLY PACED. PT. AGAIN DENIES ANY CP. EKG'S SCANNED FOR MD TO EVALUATE. TECHNICAL PLANNER NOW AT BEDSIDE WELL AND UPDATED ON PT'S CONDITION. DR. DEMPSEY CALLED AND NOTIFIED OF THESE EVENTS AND NEW ORDERS RECEIVED FOR AMIODARONE GTT WITHOUT A BOLUS WELL TROPONIN X1; MD DID REVIEW EKG OBTAINED. ALSO RECEIVED ORDERS FOR TRANSFER TO [facility]. PT. IS IN AGREEMENT WITH TRANSFER AND UPDATED ON POC.
--- NOTE | 2019-06-29 00:25 | NUR ---
BALL SORTER CALLED TRANSFER CENTER AND SPOKE WITH JAZMIN TO INITIATE TRANSFER. AWAITING RETURN PHONE CALL.
--- NOTE | 2019-06-29 00:47 | NUR ---
AMIODARONE GTT STARTED BY AYAKA SMITH PER ORDER.
--- NOTE | 2019-06-29 01:15 | NUR ---
SECOND IV SITE STARTED #22 GAUGE TO RIGHT OUTER HAND AND IV AMIODARONE SWITCHED OVER TO THIS NEW SITE AND OTHER IV SITE TO RIGHT HAND SL AND FLUSHED WITH NS.
--- NOTE | 2019-06-29 02:22 | NUR ---
CLAIRE INFRASTRUCTURE ENGINEER NOTIFIED [facility] OF NEED FOR TRANSPORT. ETA 30MIN OR LESS PER TRANSPORT.
--- NOTE | 2019-06-29 02:35 | NUR ---
REPORT GIVEN TO AYAKA DEVI, AT [facility]. ANSWERED ALL QUESTIONS. AWAITING TRANSPORT FOR PT.
--- NOTE | 2019-06-29 02:40 | NUR ---
CALLED AND NOTIFIED PT'S DAUGHTER ,KATIE, OF PT'S TRANSFER TO [facility] ALONG WITH ROOM NUMER AND ETA [facility] STATION NUMBER. PT. WANTED HER TO BE CALLED AND NOTIFIED INSTEAD OF NEXT OF KIN DAUGHTER RAYNE LISTED IN CHART. DAUGHTER SPOKE TO PT. WELL.
--- NOTE | 2019-06-29 03:12 | NUR ---
PT. LEFT VIA STRETCHER ACCOMPANIED BY [facility] TRANSPORT.FULL REPORT GIVEN TO COOPERATIVE EXTENSION AGENT AND HAS NO QUESTIONS. PT. STABLE. VSS. IV SITE PATENT X2 WITH AMIODARONE GTT INFUSING PER PROTOCOL. PT. LEFT WITH UPPER AND LOWER DENTURES IN HER MOUTH AND BELONGINGS IN BAG.
== END 2019-06-29 03:12 | disposition short-term general hospital (02) | DRG 308 ==
LOC: ED 16:40 → ED-I 17:43 → ED 17:56 → ICU 17:57 → MS2 06-19 18:37 → ICU 06-26 06:08
PROVIDERS: Emergency Medicine; Family Medicine; Internal Medicine; Internal Medicine Nephrology; ADMIT Internal Medicine; ATTEND Internal Medicine
PROC: 0W993ZZ Drainage of Right Pleural Cavity, Percutaneous Approach (ICD-10-PCS; principal; 2019-06-27)
DX: I48.2 Chronic atrial fibrillation (principal); I50.23 Acute on chronic systolic (congestive) heart failure; J96.20 Acute and chronic respiratory failure, unspecified whether with hypoxia or hypercapnia; I13.0 Hypertensive heart and chronic kidney disease with heart failure and stage 1 through stage 4 chronic kidney disease, or unspecified chronic kidney disease; N18.4 Chronic kidney disease, stage 4 (severe); N17.9 Acute kidney failure, unspecified; J91.8 Pleural effusion in other conditions classified elsewhere; N25.81 Secondary hyperparathyroidism of renal origin; I47.2 Ventricular tachycardia; E11.22 Type 2 diabetes mellitus with diabetic chronic kidney disease; E11.649 Type 2 diabetes mellitus with hypoglycemia without coma; E87.5 Hyperkalemia; J44.9 Chronic obstructive pulmonary disease, unspecified; E78.5 Hyperlipidemia, unspecified; M19.90 Unspecified osteoarthritis, unspecified site; I25.119 Atherosclerotic heart disease of native coronary artery with unspecified angina pectoris; I25.5 Ischemic cardiomyopathy; D63.1 Anemia in chronic kidney disease; I25.2 Old myocardial infarction; Z79.01 Long term (current) use of anticoagulants; Z95.5 Presence of coronary angioplasty implant and graft; Z79.4 Long term (current) use of insulin; Z95.810 Presence of automatic (implantable) cardiac defibrillator
CPT/HCPCS: J0282